=== PATIENT | female | born 1955 | race Caucasian/White ===

== ENCOUNTER → 2016-07-12 17:00 | Outpatient (CLI) | payer BC | END | disposition home or self-care (01) | LOC: D.MAMMO 11:30 | DX: Z12.31 Encounter for screening mammogram for malignant neoplasm of breast (principal) ==

== ENCOUNTER → 2016-07-25 19:30 | Outpatient (CLI) | payer BC | END | disposition home or self-care (01) | LOC: D.SLEEP 19:30 | DX: G47.33 Obstructive sleep apnea (adult) (pediatric) (principal) ==

== ENCOUNTER → 2018-09-01 15:51 | Outpatient (CLI) | payer MEDICAID | END | disposition home or self-care (01) | LOC: D.CT 08-25 16:00 | PROVIDERS: ATTEND Nurse Practitioner | DX: J32.9 Chronic sinusitis, unspecified (principal) ==

== ENCOUNTER 2018-11-28 10:20 | Observation (INO) | payer MEDICAID ==
[~2018-11-28] VITALS: Ht 160 cm; Wt 88.5 kg
[2018-11-28 11:34] LABS: BASOPHILS 0.4 % (0-2); EOSINOPHILS 1.8 % (0-7); HEMATOCRIT 41.3 % (36.0-48.0); HEMOGLOBIN 13.8 g/dL (12-16); IMMATURE GRANULOCYTES 0.2 % (0-5); MCH 27.7 pg (26.0-34.0); MCHC 33.4 g/dL (31.0-37.0); MCV 82.9 fL (80.0-100.0); MONOCYTES 8.3 % (2-11); NEUTROPHILS 64.3 % (40-80); PLATELET COUNT 182 10x3/uL (130-400); RBC 4.98 10x6/uL (4.00-5.40); RDW 13.3 % (11.5-14.5); WBC 5.5 10x3/uL (4.8-10.8)
[2018-11-28 11:43] LABS: APTT 35.7 SECONDS (22.8-39.4); INR 1.07 (0.85-1.17); PROTIME 13.4 SECONDS (11.6-15.0)
[2018-11-28 11:44] LABS: CALC OSMOLALITY 272 mosm/kg (275-300); CALCIUM 9.4 mg/dL (8.5-10.1); CARBON DIOXIDE 28.8 mmol/L (21.0-32.0); CHLORIDE - SERUM 100 mmol/L (98-107); CREATININE - SERUM 0.7 mg/dL (0.6-1.3); GLUCOSE 205 mg/dL (74-106); POTASSIUM - SERUM 3.9 mmol/L (3.5-5.1); SODIUM 134 mmol/L (136-145); UREA NITROGEN 10 mg/dL (7-18); eGFR NON AFRICAN AMERICAN 89 mL/min (90-120)
[2018-11-28 11:45] LABS: D-DIMER-QUANTITATIVE 1.37 ug/mLFEU (0.20-0.54)
[2018-11-28 12:00] LABS: ALBUMIN 3.6 g/dL (3.4-5.0); ALKALINE PHOSPHATASE 122 U/L (46-116); ALT (SGPT) 43 U/L (10-68); BILIRUBIN - TOTAL 0.59 mg/dL (0.2-1.3); CKMB 1.1 U/L (0.0-3.6); CREATINE KINASE 67 UL (21-215); MAGNESIUM - SERUM 1.9 mg/dL (1.8-2.4); PROTEIN - SERUM 8.1 g/dL (6.4-8.2)
[2018-11-28 12:01] LABS: TROPONIN-I < 0.017 ng/mL (0.000-0.060)
[2018-11-28 12:28] LABS: APPEARANCE CLEAR (CLEAR); BILIRUBIN NEGATIVE (NEGATIVE); COLOR YELLOW (YELLOW); GLUCOSE 1000 mg/dL (NEGATIVE); KETONE NEGATIVE (NEGATIVE); NITRITE NEGATIVE (NEGATIVE); PROTEIN NEGATIVE (NEGATIVE)
--- NOTE | 2018-11-28 13:29 | CN ---
PATIENT NAME:DB CHANDLER MEDICAL RECORD: [id number] : 53 LOCATION:D.ER ADMIT DATE: ACCOUNT: [id number] CONSULTING PHYSICIAN: ETHEL YANCEY MD REFERRING PHYSICIAN: BRYANT SANTOYO MD DATE OF CONSULTATION: 11/28/2018 CARDIOLOGY CONSULTATION ADMITTING DIAGNOSES: 1. Chest pain. 2. Shortness of breath, dyspnea on exertion. HISTORY OF PRESENT ILLNESS: Mrs. Chandler presented last week to [facility] for what sounds like a TIA. Minimal workup was done there. Since this episode, she has been having episodes of chest pain. The chest pain is relatively typical for angina, a dull aching heavy sensation with radiation to her jaw and neck area. She has also noticed significant change by being significantly short of breath since this episode with the episode of the TIA and possibly syncope. She did not have any chest pain at that time, hence a cardiac workup was not undertaken at [facility]. She has not had a cardiac workup in the past, has no cardiac history. Her EKG is with no ST-T abnormalities. PHYSICAL EXAMINATION: CONSTITUTIONAL/GENERAL APPEARANCE: Well nourished, well developed, appears stated age. EYES: Lids and conjunctivae noninjected. No discharge. No pallor. ENT: Lips within normal limit. No cyanosis. No pallor. NECK: Carotid arteries, bilateral normal upstroke. No bruits. No thrills. No jugular venous pressure or distention. CERVICAL LYMPH NODES: Nontender. Nonenlarged. THYROID: Not enlarged. No nodules. CARDIOVASCULAR: Precordial exam, nondisplaced. No heaves or pericardial thrills. Rate and rhythm, regular. Heart sounds, normal S1, normal S2. No S3, no gallop, no rub. Systolic murmur, not heard. Diastolic murmur, not heard. RESPIRATORY: Respiratory effort, unlabored. Normal curvature. No thoracic deformity. No chest wall tenderness. Percussion, resonant. Auscultation, clear. No wheezes, no rales, no rhonchi. ABDOMEN: Soft, nondistended, nontender. No abdominal pain, no vomiting and normal appetite. MUSCULOSKELETAL: No joint tenderness, normal gait, normal tone. SKIN: Warm and dry. OVERALL IMPRESSION: Chest discomfort with shortness of breath, dyspnea on exertion. At this time, we will risk stratify with stress testing Cardiolite imaging. Further care depends on the findings of the stress test. TRANSINT:[id number] Voice Confirmation ID: [id number] DOCUMENT ID: [id number] CONSULT REPORT [id number] DB CHANDLER JEFFREY MD at 1329 CC: [id number] DICTATION DATE: 11/28/18 1250 EXTRACTING MACHINE OPERATOR: 11/28/18 1258 [facility] [address] [place] [id number]
[2018-11-28 14:08] VITALS: BP 136/69
--- NOTE | 2018-11-28 14:32 | NUR ---
ATTEMPTED TO CALL REPORT TO MED 2, NURSE OFF THE FLOOR WILL CALL ER IN A FEW MINUTES FOR REPORT
[2018-11-28] MEDS ORDERED: GLIMEPIRIDE4 MG PO (15:22)
[2018-11-28] MEDS ORDERED: PRAVASTATIN SOD10 MG PO (15:22)
[2018-11-28] MEDS ORDERED: JANUMET 50-1,01 EAC1 PO (15:22)
[2018-11-28] MEDS ORDERED: CLARITIN 10 MG10 MG PO (15:23)
[2018-11-28] MEDS ORDERED: ROPINIROLE HCL0.5 MG PO (15:25)
--- NOTE | 2018-11-28 15:32 | NUR ---
RECIVED FROM ER PER WC TO ROOM 2123. ADMIT ASSESSMENT PER RN
[2018-11-28 15:36] VITALS: BP 117/61; BMI 34.6
[2018-11-28 16:00] VITALS: BP 117/61
--- NOTE | 2018-11-28 17:02 | NUR ---
WITHOUT CHANGES OR DISTRESS NOTED AT THIS TIME. DENIES NEEDS
[2018-11-28 18:21] LABS: CKMB 0.6 U/L (0.0-3.6); CREATINE KINASE 59 UL (21-215)
[2018-11-28 18:25] LABS: TROPONIN-I < 0.017 ng/mL (0.000-0.060)
[2018-11-28 19:00] VITALS: BP 141/71
--- NOTE | 2018-11-28 19:15 | NUR ---
RECEIVED REPORT, WILL ASSUME CARE OF PT, DENIES ANY NEEDS, FAMILY AT BEDSIDE, BED IS LOW, SRX2, CALL LIGHT IN REACH, WILL CONTINUE PLAN OF CARE
[2018-11-29] VITALS: BP 129/66
[2018-11-29 00:38] LABS: CKMB 0.7 U/L (0.0-3.6); CREATINE KINASE 50 UL (21-215); TROPONIN-I < 0.017 ng/mL (0.000-0.060)
--- NOTE | 2018-11-29 02:34 | NUR ---
I have reviewed this patient and I concur with the Shift Assessment completed by the Licensed Practical Nurse today this shift.
[2018-11-29 04:00] VITALS: BP 119/68
[2018-11-29 05:13] LABS: BASOPHILS 0.5 % (0-2); EOSINOPHILS 2.6 % (0-7); HEMATOCRIT 39.6 % (36.0-48.0); HEMOGLOBIN 12.9 g/dL (12-16); IMMATURE GRANULOCYTES 0.1 % (0-5); LYMPHOCYTES 32.1 % (15-50); MCH 27.7 pg (26.0-34.0); MCHC 32.6 g/dL (31.0-37.0); MEAN PLATELET VOLUME 9.5 fL (7.4-10.4); MONOCYTES 10.9 % (2-11); NEUTROPHILS 53.8 % (40-80); PLATELET COUNT 200 10x3/uL (130-400); RBC 4.66 10x6/uL (4.00-5.40); RDW 13.5 % (11.5-14.5); WBC 7.8 10x3/uL (4.8-10.8)
[2018-11-29 05:48] LABS: ALBUMIN 3.1 g/dL (3.4-5.0); ALKALINE PHOSPHATASE 109 U/L (46-116); ALT (SGPT) 36 U/L (10-68); BILIRUBIN - TOTAL 0.55 mg/dL (0.2-1.3); CALC OSMOLALITY 272 mosm/kg (275-300); CALCIUM 9.6 mg/dL (8.5-10.1); CARBON DIOXIDE 23.3 mmol/L (21.0-32.0); CHLORIDE - SERUM 104 mmol/L (98-107); CKMB 0.3 U/L (0.0-3.6); CREATINE KINASE 48 UL (21-215); CREATININE - SERUM 0.6 mg/dL (0.6-1.3); GLUCOSE 162 mg/dL (74-106); POTASSIUM - SERUM 4.4 mmol/L (3.5-5.1); PROTEIN - SERUM 7.4 g/dL (6.4-8.2); SODIUM 135 mmol/L (136-145); UREA NITROGEN 10 mg/dL (7-18); eGFR NON AFRICAN AMERICAN > 90 mL/min (90-120)
[2018-11-29 05:50] LABS: TROPONIN-I < 0.017 ng/mL (0.000-0.060)
--- NOTE | 2018-11-29 08:02 | NUR ---
ALERT AND ORIENTED. TELEMERTY SHOWS SR 81. UP AB WYATT. L HAND SL AND RIGHT FA SL. NPO FOR STRESS TEST. DENIES ANY PAIN AT PRESENT TIME. WILL MONITOR
[2018-11-29 08:19] VITALS: BP 131/68
--- NOTE | 2018-11-29 08:38 | NUR ---
ASSESSMENT COMPLETED. ALERT AND ORIENTED. TELEMERTY SHOWS SR 81 UP AB WYATT. SL TO RIGHT FA AND LEFT HAND. DENIES ANY NEEDS.
--- NOTE | 2018-11-29 08:47 | NUR ---
TO STRESS TEST PER WHEELCHAIR
--- NOTE | 2018-11-29 10:04 | NUR ---
I have reviewed this patient and I concur with the Shift Assessment completed by the Licensed Practical Nurse today this shift.
[2018-11-29 11:41] VITALS: BP 147/58
[2018-11-29 11:48] VITALS: Ht 160 cm; Wt 88.5 kg
--- NOTE | 2018-11-29 16:41 | NUR ---
PT DISCHARGED. IVS DCD WITH TIPS INTACT. INSTRUCTIONS GIVEN TO PT. TO PRIVATE CAR PER WHEELCHAIR
--- NOTE | 2018-12-01 08:51 | MORECARE ---
CASE MANAGEMENT DISCHARGE SUMMARY PATIENT: DB NINA UNIT: [id number] ADM DATE: 11/28/18 AGE: 63 : [birth year] SEX: F ROOM/BED: D.3460 AUTHOR: BETY MCCARTHY PHYSICIAN: REFERRING PHYSICIAN: BROCK ANDERSEN MD DATE OF SERVICE: 12/01/18 Discharge Plan Patient Name: DB NINA [facility] [facility] 1955 Planned Disposition: Home Anticipated Discharge Date: 11/29/18 Discharge Date: 11/29/2018 Expected LOS: 1 Initial Reviewer: [email or web address] Initial Review Date: 12/01/2018 Generated: 12/01/18 9:51 am Patient Name: DB NINA Page [id number] at 0851 All edits/amendments must be made on the electronic document DICTATION DATE: 12/01/1851 SWEET PICKLE MAKER: PEGGY 12/01/1851 RPT#: [id number] DC DATE:11/29/18 STATUS: DIS IN [facility] [address] [place] [address] END OF REPORT
--- NOTE | 2018-12-09 11:40 | EC ---
PATIENT:DB NINA DATE OF SERVICE: 11/28/18 SEX: F MEDICAL RECORD: [id number] DATE OF : 53 LOCATION:D. D.212 AGE OF PATIENT: 63 ADMISSION DATE: 11/28/18 REFERRING PHYSICIAN: INTERPRETING PHYSICIAN: ETHEL ABEBE MD ECHOCARDIOGRAM REPORT ECHO CHARGES 4 ECHO COMPLETE Date: 11/28/18 CLINICAL DIAGNOSIS: TIA ECHOCARDIOGRAPHIC MEASUREMENTS (adult normal given) AC root (d.<3.7cm) 3.1 cm LV Septum d (<1.2 cm> 1.5 cm Valve Excursion 1.6 cm LV Septum (systole) 2.0 cm Left Atria (s.<4.0cm> 3.2 cm LVPW d(<1.2cm) 1.6 cm RV (d.<2.3cm) 3.2 cm LVPW (sytole) 1.6 cm LV diastole(<5.6CM) 4.6 cm MV E-F(>70mm/sec) cm LV systole 2.8 cm LVOT Diameter 1.7 cm MV exc.(>10mm) 1.7 cm Est.ejection fraction (50-75%) % DOPPLER: LVIT cm/sec A 82.0 cm/sec E 57.0 cm/sec LA cm/sec RVSP 18 mmHg LVOT 119 cm/sec AOP1/2T m/s Asc. Ao 147 cm/sec RVOT 107 cm/sec RA cm/sec PA 128 cm/sec AV Gradient Peak 8.69 mmHg AV Mean 5.10 mmHg AV Area 2.0 cm MV Gradient Peak 3.81 mmHg MV Mean 1.71 mmHg MV Area cm COMMENTS: Gravity Flow Irrigator: Bridgett BAH Ticket Counter: 1 Dr. Abebe TAPE# PACS Pericardial Effusion N DATE OF SERVICE: FINDINGS: 1. Left ventricular chamber size is within normal limits. Left ventricular systolic function is normal. Overall ejection fraction estimated at 60%. 2. Left atrium, right atrium, and right ventricular chamber sizes are within normal limits. 3. Valvular structures have normal structure and motion. 4. Doppler interrogation reveals no significant valvular insufficiency or stenosis. Pulmonary systolic pressure is normal, estimated at 18 mmHg. ECHOCARDIOGRAM REPORT [id number] BD NINA 5. No evidence of pericardial effusion or left ventricular thrombus. TRANSINT:[id number] Voice Confirmation ID: [id number] DOCUMENT ID: [id number] ETHEL ABEBE MD at 1140 CC: [id number] DICTATION DATE: 11/30/18 1014 REIKI PRACTITIONER: 11/30/18 1126 DIS IN 11/29/[address] [id number] [place] [id number]
--- NOTE | 2018-12-09 11:40 | DS ---
PATIENT:DB CHANDLER :53 MEDICAL RECORD: [id number] DISCHARGE SUMMARY ADMISSION DATE: 11/28/18 DISCHARGE DATE: 11/29/18 DATE OF SERVICE: 11/29/2018 DIAGNOSES: 1. Chest pain. 2. Normal nuclear stress test. BRIEF HISTORY AND HOSPITAL COURSE: Ms. Chandler presents with chest discomfort; however, nuclear stress testing was normal with no perfusion defects and ejection fraction 75%. She will follow up with her primary care physician for noncardiac etiology of chest pain workup. TRANSINT:[id number] Voice Confirmation ID: [id number] DOCUMENT ID: [id number] ETHEL YANCEY MD at 1140 CC: [id number] DICTATION DATE: 11/30/18 1008 XEROX MACHINE ASSEMBLER: 12/01/18 0011 DIS IN 11/29/18 [facility] [address] [place] [address]
--- NOTE | 2018-12-09 11:40 | ST ---
PATIENT:DB NINA MEDICAL RECORD: [id number] SEX: F LOCATION:[address] ORDER #: ADMISSION DATE: 11/28/18 AGE OF PATIENT: 63 REFERRING PHYSICIAN: INTERPRETING PHYSICIAN: ETHEL YANCEY MD DATE OF SERVICE: 11/29/2018 NUCLEAR STRESS TEST INDICATION: Chest pain of unknown etiology. She was exercised on standard Danilo protocol with 31 mCi of sestamibi injected at peak stress, 12 mCi used previously for rest images. FINDINGS: Gated SPECT reveals preserved ejection fraction at 75% with good wall motion and thickening and brightening throughout all segments. SPECT imaging Cardiolite was used as myocardial fusion agent. There is homogeneous uptake throughout all segments at rest and stress with no evidence of inducible ischemia or previous infarction. OVERALL IMPRESSION: 1. This is a normal nuclear stress test with no evidence of inducible ischemia or previous infarction. 2. Gated SPECT reveals a preserved ejection fraction at 75%. In this patient with ongoing symptomatology, the current scan does not suggest the presence of hemodynamically significant coronary artery disease. Evaluate noncardiac etiology of chest pain. TRANSINT:[id number] Voice Confirmation ID: [id number] DOCUMENT ID: [id number] ETHEL YANCEY MD at 1140 CC: [id number] DICTATION DATE: 11/30/18 1008 ART DEALER: 12/01/18 0007 DIS IN 11/29/18 [id number] [place] [address]
== END 2018-11-29 16:44 | disposition home or self-care (01) ==
LOC: D.ER 10:20 → D.M2 13:31 → OBSVTIME 13:32 → D.M2 11-29 16:44
PROVIDERS: Family Medicine; ADMIT Emergency Medicine; ATTEND Emergency Medicine
DX: I20.0 Unstable angina (principal); E78.5 Hyperlipidemia, unspecified; G25.81 Restless legs syndrome; M19.90 Unspecified osteoarthritis, unspecified site; E11.65 Type 2 diabetes mellitus with hyperglycemia